=== PATIENT | female | born 2000 | race Caucasian/White ===

== ENCOUNTER 2024-04-03 14:33 | Emergency (ER) | payer BC, MEDICAID ==
[~2024-04-03] VITALS: Ht 157.5 cm; Wt 68.0 kg
[~2024-04-03 14:33] MED LIST: DOXY100T28 MT; NITR100C PO
[2024-04-03 14:36] VITALS: O2SAT 96
[2024-04-03 15:20] VITALS: BP 125/70; PULSE 78; RESP 16; TEMP 36.8; O2SAT 99
[2024-04-03] MEDS ORDERED: CIPR500T5 MT (19:01)
[2024-04-03] MEDS ORDERED: ACET-2708 MT (19:02)
[2024-04-03 19:29] LABS: CLARITY URINE CLOUDY (CLEAR); COLOR URINE YELLOW (YELLOW); GLUCOSE URINE NEGATIVE (NEGATIVE); KETONES URINE TRACE (NEGATIVE); LEUKOCYTE ESTERASE URINE 2+ (NEGATIVE); NITRITE URINE NEGATIVE (NEGATIVE); OCCULT BLOOD URINE NEGATIVE (NEGATIVE); PROTEIN URINE TRACE (NEGATIVE); SPECIFIC GRAVITY URINE 1.034 (1.005-1.030)
[2024-04-03 20:25] LABS: BACTERIA URINE 1+; RBC URINE NONE SEEN /hpf (0-2); SQUAMOUS EPITHELIAL CELL URINE 1+ /lpf (RARE/1+); WBC URINE 15-25 /hpf (0-2)
== END 2024-04-03 20:16 | disposition home or self-care (01) ==
LOC: ER 14:33
DX: N39.0 Urinary tract infection, site not specified (principal); Z87.440 Personal history of urinary (tract) infections
CPT/HCPCS: 81003; 81025; 87077; 87186; 99283